=== PATIENT | female | born 1985 | race African-American/Black ===

== ENCOUNTER 2024-01-08 19:21 | Inpatient (IN) | payer BC ==
[2024-01-08 20:14] VITALS: BMI 38.2
[2024-01-08] MEDS: DEXTROSE 5%-LACTATED RINGERS 1,000 ML IV SCH (21:00)
[2024-01-08 21:26] LABS: BASO % 0.4 % (0-2.0); EOS % 0.9 % (0-4.5); HEMATOCRIT 39.9 % (32.4-45.2); HEMOGLOBIN 13.4 GM/dL (10.7-15.3); LYMPH % 23.2 % (8-40); MCH 30.8 pg (25.7-33.7); MCHC 33.4 g/dl (32.0-36.0); MEAN PLT VOLUME 9.5 fl (7.5-11.1); MONO % 9.1 % (3.8-10.2); NEUT % 66.4 % (42.8-82.8); PLATELET COUNT 189 10^3/uL (134-434); RBC 4.34 M/mm3 (3.60-5.2); RDW 13.3 % (11.6-15.6); WHITE BLOOD COUNT 6.6 K/mm3 (4.0-10.0)
[2024-01-08 21:32] LABS: PROTHROMBIN TIME (PATIENT) 11.6 SEC (9.7-13.0)
[2024-01-08 21:35] LABS: ACTIVATED PTT 27.1 SECONDS (25.2-36.5)
[2024-01-08] MEDS: MISOPROSTOL 25 MCG TABLET (COMPOUNDED BY PHARMACY) PV SCH (21:40)
[2024-01-08 21:50] LABS: POTASSIUM 3.5 mmol/L (3.5-5.1)
[2024-01-08] MEDS ORDERED: INSULIN (NOVOLOG) ASPART 100 UNITS/ML 10ML VIAL ONE (21:50)
[2024-01-08] MEDS: INSULIN (NOVOLOG) ASPART 100 UNITS/ML 10ML VIAL SQ ONE (21:50)
[2024-01-08 21:52] LABS: CALCIUM 9.4 mg/dL (8.5-10.1)
[2024-01-08 21:53] LABS: ALBUMIN 2.8 g/dl (3.4-5.0)
[2024-01-08 21:56] LABS: CREATININE 0.5 mg/dL (0.55-1.3)
[2024-01-08 21:57] LABS: BILIRUBIN,TOTAL 0.4 mg/dL (0.2-1); TOT PROT 6.3 g/dl (6.4-8.2)
[2024-01-08 23:06] LABS: HIV INTERPRETATION NEGATIVE (NEGATIVE)
[2024-01-09] MEDS: SODIUM CHLORIDE 500 ML IV STA ×2 (12:58→15:40)
[2024-01-09] MEDS ORDERED: morphine SULFATE 4 MG/ML VIAL ONE (13:16)
[2024-01-09] MEDS: morphine CARPU-JECT 8 MG/1 ML DISP.SYRIN IVPUSH ONE (13:21)
[2024-01-09] MEDS ORDERED: OXYTOCIN 20 UNITS in 0.9% NS 20 UNIT/1,000 ML INFUS.BAG IV ONE (15:15)
[2024-01-09] MEDS ORDERED: LIDOCAINE HCL 1% PRESERVATIVE FREE - 30ML VIAL ONE (15:15)
[2024-01-09] MEDS ORDERED: OXYTOCIN 10 UNITS/ML VIAL ONE (15:53)
[2024-01-09] MEDS: OXYTOCIN 10 UNITS/ML VIAL IM ONE (16:04)
[2024-01-09] MEDS: OXYTOCIN 20 UNITS in 0.9% NS 20 UNIT/1,000 ML INFUS.BAG IV SCH (16:50)
[2024-01-09] MEDS ORDERED: WITCH HAZEL 50% (TUCKS) 40 PAD/JAR PAD TP PRN (17:03)
[2024-01-09] MEDS ORDERED: BENZOCAINE 28 GM HEMORRHOIDAL OINTMENT TP PRN (17:03)
[2024-01-09] MEDS ORDERED: ACETAMINOPHEN 325 MG TABLET (FP) PO PRN (17:03)
[2024-01-09 17:12] LABS: CORD BASE EXCESS -4.5 mmol/L (0-2); CORD HCO3 20.4 mmHg (20-29); CORD PCO2 37.3 mmHg (30-78); CORD pH 7.355 (7.14-7.44)
[2024-01-09] MEDS: morphine SULFATE 4 MG/ML VIAL IVPUSH ONE (17:12)
[2024-01-09 18:04] VITALS: RESP 18
[2024-01-09] MEDS: FERROUS SO4 325 MG TABLET (FP) PO SCH (18:22)
[2024-01-10 07:02] LABS: BASO % 0.3 % (0-2.0); EOS % 1.1 % (0-4.5); HEMATOCRIT 36.5 % (32.4-45.2); HEMOGLOBIN 12.2 GM/dL (10.7-15.3); LYMPH % 14.8 % (8-40); MCH 30.9 pg (25.7-33.7); MCHC 33.5 g/dl (32.0-36.0); MEAN CELL VOLUME 92.4 fl (80-96); MEAN PLT VOLUME 9.7 fl (7.5-11.1); MONO % 7.6 % (3.8-10.2); NEUT % 76.2 % (42.8-82.8); PLATELET COUNT 170 10^3/uL (134-434); RBC 3.95 M/mm3 (3.60-5.2); RDW 13.1 % (11.6-15.6); WHITE BLOOD COUNT 13.3 K/mm3 (4.0-10.0)
[2024-01-10] MEDS: IBUPROFEN 600 MG TABLET (FP) PO PRN (08:59)
[2024-01-10] MEDS: PRENATAL VITAMINS W/ FOLIC ACID TABLET (FP) PO SCH (09:00)
[2024-01-11] MEDS: DOCUSATE SODIUM 100 MG CAPSULE (FP) PO PRN (08:36)
[2024-01-11 08:49] VITALS: BP 125/78; PULSE 87; TEMP 98.1
== END 2024-01-11 12:15 | disposition home or self-care (01) | DRG 807 ==
LOC: JLDR 19:21 → J3W 01-09 18:11
PROVIDERS: ADMIT Obstetrics & Gynecology Maternal & Fetal Medicine; ATTEND Obstetrics & Gynecology Maternal & Fetal Medicine
PROC: 10E0XZZ Delivery of Products of Conception, External Approach (ICD-10-PCS; principal; 2024-01-09)
PROC: 0HQ9XZZ Repair Perineum Skin, External Approach (ICD-10-PCS; 2024-01-09)
PROC: 10907ZC Drainage of Amniotic Fluid, Therapeutic from Products of Conception, Via Natural or Artificial Opening (ICD-10-PCS; 2024-01-09)
DX: O24.424 Gestational diabetes mellitus in childbirth, insulin controlled (principal); Z37.0 Single live birth; O70.0 First degree perineal laceration during delivery; Z3A.39 39 weeks gestation of pregnancy
CPT/HCPCS: 36415; 36600; 80053; 82803; 82962; 85025; 85610; 85730; 86780; 86850; 86900; 86901; 87389